=== PATIENT | female | born 1935 | race Caucasian/White ===

== ENCOUNTER 2016-10-06 14:47 | Emergency (ER) | payer MEDICARE, BC ==
[~2016-10-06 14:47] MED LIST: 8 HOUR650 MG PO; ASAB PO; ATV.5 PO; BENTYL20 PO; BETHAN10B PO; C1 PO; C2 PO; CALCIUM/MG/ZINC OR; CELEXA20 PO; CITRACAL PO; COSAMIN DS1 TAB PO; CRESTOR5 MG PO; DULERA 200 MCG/13 GM INH; DURA25 TOP; FISH-EPA1000 MG PO; FOSAMAX70 MG PO; GERITOL PO; HALF81 PO; IMDUR30 PO; K250 PO; L20 PO; L40 PO; LEVSINTAB PO; LOP25 PO; LORTAB 5 PO; MAGNEBIND300 MG PO; MAGONATE PO; MELA3 PO; MELATONIN PO; MELATONIN5 M1 PO; MIRALAXPKT PO; MULTIPLE VIT PO; NATURA2 OPH; NEXIUM40 PO; NORCO1 TA2 PO; NORV25 PO; P10 PO; P20 PO; P5 PO; PEPCID40 MG PO; PRILO PO; PRILOSEC OTC20 MG PO; PROAIR HFA INH; PROBIOTIC PO; PROVHFA INH; PYR200 PO; REG5 PO; RESCUE INHALER INH; SPIRIVA INH; STERAPRED5 MG; THERAPEUTIC PO; TYLENOL ARTH650 MG PO; VITA10 PO; VITAMIN D1000 UNI1 PO; VITAMIN D400 UNI1 PO; XARELTO15 MG PO
[2016-10-06 17:13] LABS: BASOPHILS 0.1 %; BASOPHILS ABSOLUTE 0.01 10/3/uL (0.0-0.16); EOSINOPHILS 0.1 %; EOSINOPHILS ABSOLUTE 0.01 10/3/uL (0.0-0.53); ER CBC TAT 0 Hrs 03 Mins; HEMOGLOBIN 11.1 g/dL (12.0-16.0); IMMATURE GRANULOCYTES 0.5 %; IMMATURE GRANULOCYTES ABSOLUTE 0.08 10/3/uL (0.0-0.11); LYMPHOCYTES 4.2 %; LYMPHOCYTES ABSOLUTE 0.67 10/3/uL (0.67-4.30); MEAN CORPUS HGB CONC 30.7 g/dL (32.0-36.0); MEAN CORPUSCULAR HEMOGLOB 29.4 pg (26.0-34.0); MEAN CORPUSCULAR VOLUME 95.5 fL (80-100); MEAN PLATELET VOLUME 9.1 fL (9.2-13.0); MONOCYTES 2.1 %; MONOCYTES ABSOLUTE 0.33 10/3/uL (0.21-1.20); NEUTROPHILS ABSOLUTE 14.69 10/3/uL (2.02-8.40); RBC DISTRIBUTION WIDTH 15.3 % (12.0-16.0); RED CELL COUNT 3.78 10/6/uL (4.0-5.6); WHITE BLOOD CELLS 15.8 10/3/uL (4.5-10.5)
[2016-10-06 17:17] LABS: HEMATOCRIT 36.1 % (36.0-48.0); MANUAL DIFF NO %; PLATELET COUNT 432 10/3/uL (150-400)
[2016-10-06 17:18] LABS: INFLUENZA A SCREEN NEGATIVE (NEGATIVE); INFLUENZA B SCREEN NEGATIVE (NEGATIVE)
[2016-10-06 17:29] LABS: CALCIUM, SERUM 8.9 MG/DL (8.5-10.4); CHLORIDE, SERUM 105 MMOL/L (96-112); CO2 (CARBON DIOXIDE) 24 MMOL/L (24-34); GFR AFRICAN AMERICAN 62 ML/MIN (>=60); GFR NON AFRICAN AMERICAN 54 ML/MIN (>=60); INTERNATIONAL NORMAL RATI 1.2 UNITS (-); PARTIAL THROMBO TIME 33.6 SEC (22.5-37.2); POTASSIUM, SERUM 4.2 MMOL/L (3.5-5.3); PROTIME (NOT ORD) 14.8 SEC (12.0-14.5); SODIUM, SERUM 139 MMOL/L (135-148)
[2016-10-06 17:30] LABS: BUN (BLOOD UREA NITROGEN) 17 MG/DL (6-23); GLUCOSE, SERUM 139 MG/DL (60-99)
[2016-10-06 17:31] LABS: CHEST PAIN PROFILE TAT 0 Hrs 30 Mins; TROPONIN I 0.05 NG/ML (<0.05)
[2016-10-06 17:48] LABS: BAND NEUTROPHILS 5 %; ER DIFF TAT 0 Hrs 38 Mins; LYMPHOCYTES 3 %; LYMPHOCYTES ABSOLUTE (CALC) 0.47 10/3/uL (0.67-4.30); MONOCYTES 2 %; MONOCYTES ABSOLUTE (CALC) 0.32 10/3/uL (0.21-1.20); NEUTROPHILS ABSOLUTE (CALC) 15.01 10/3/uL (2.02-8.40); SEGMENTED NEUTROPHIL (0) 90 %; TOTAL NUCLEATED CELLS 100
[2016-10-06 17:49] LABS: PLATELET ESTIMATE SLT INC (ADEQUATE); RBC MORPHOLOGY NORM (NORMAL)
[2017-01-01] MEDS ORDERED: P10 PO (15:49)
[2017-01-01] MEDS ORDERED: HALF81 PO (15:49)
[2017-01-01] MEDS ORDERED: PRILO PO (15:50)
[2017-01-01] MEDS ORDERED: CELEXA20 PO (15:50)
[2017-01-01] MEDS ORDERED: ALBUTEROL0.083 % INH (15:51)
[2017-01-01] MEDS ORDERED: DULERA 200 MCG/13 GM INH (15:51)
[2017-01-01] MEDS ORDERED: SIMETHICONE 250 MG PO (15:52)
[2017-01-01] MEDS ORDERED: PR12.5 PO (15:53)
[2017-01-01] MEDS ORDERED: L20 PO (15:54)
[2017-01-01] MEDS ORDERED: SYSTANE ULTR OPH (15:56)
[2017-01-04] MEDS ORDERED: LOTE10 PO (12:32)
[2017-01-04] MEDS ORDERED: THERGRANM PO (12:33)
[2017-01-04] MEDS ORDERED: TOPXL50 PO (12:33)
[2017-01-04] MEDS ORDERED: DULERA 200 MCG/13 GM INH (12:34)
[2017-01-04] MEDS ORDERED: PHAZYME (12:37)
[2017-01-04] MEDS ORDERED: XARELTO15 MG (12:38)
== END 2016-10-06 19:38 | disposition home or self-care (01) ==
LOC: ER 14:47
PROVIDERS: Emergency Medicine
DX: J18.9 Pneumonia, unspecified organism (principal); I11.0 Hypertensive heart disease with heart failure; I50.9 Heart failure, unspecified; R06.4 Hyperventilation; R79.89 Other specified abnormal findings of blood chemistry; J44.9 Chronic obstructive pulmonary disease, unspecified; I48.91 Unspecified atrial fibrillation; K21.9 Gastro-esophageal reflux disease without esophagitis; Z87.891 Personal history of nicotine dependence; Z88.0 Allergy status to penicillin; Z95.1 Presence of aortocoronary bypass graft; Z88.5 Allergy status to narcotic agent; Z88.8 Allergy status to other drugs, medicaments and biological substances; Z91.041 Radiographic dye allergy status; Z79.82 Long term (current) use of aspirin; Z79.52 Long term (current) use of systemic steroids; Z79.899 Other long term (current) drug therapy
CPT/HCPCS: 36600; 71020; 80048; 81001; 83735; 83880; 84484; 85025; 85610; 85730; 87804; 99285